=== PATIENT | female | born 1960 | race Caucasian/White ===

== ENCOUNTER 2021-08-10 05:57 | Day surgery (SDC) | payer MEDICAID ==
[~2021-08-10] VITALS: Ht 157.5 cm; Wt 86.6 kg
[2021-08-10] MEDS ORDERED: MEPERIDINE 100 MG INJ. 100 MG/ML VIAL ONE (06:37)
[2021-08-10] MEDS ORDERED: MIDAZOLAM HCL 5 MG/5 ML VIAL ONE (06:37)
[2021-08-10] MEDS ORDERED: SIMETHICONE 40 MG/0.6 ML ML ONE (06:37)
[2021-08-10 09:25] VITALS: BP_SYST 105
== END 2021-08-10 09:20 | disposition home or self-care (01) ==
LOC: SDS 05:57 → SMU 06:47 → SDS 09:20
PROVIDERS: ATTEND Internal Medicine Gastroenterology
DX: R19.5 Other fecal abnormalities (principal); K64.8 Other hemorrhoids; E11.9 Type 2 diabetes mellitus without complications; I10 Essential (primary) hypertension; Z79.82 Long term (current) use of aspirin; Z79.899 Other long term (current) drug therapy; Z20.822 Contact with and (suspected) exposure to COVID-19
CPT/HCPCS: 36415; 45378; 82962; 87426; G0378; J2175; J2250